=== PATIENT | male | born 2000 | race African-American/Black ===

== ENCOUNTER 2025-08-10 14:02 | Emergency (ER) | payer OTHER ==
[~2025-08-10] VITALS: Ht 172.7 cm; Wt 81.4 kg
[2025-08-10] MEDS: MINERAL OIL 473 ML BTL AU ONE (19:27)
[2025-08-10] MEDS ORDERED: CIPR7.5D2 OTIC (20:07)
[2025-08-10] MEDS: CIPRODEX OTIC SUSP 7.5 ML AU SCH (20:24)
[2025-08-10 20:34] VITALS: BP 130/72; TEMP 97.1; O2SAT 100
== END 2025-08-10 20:36 | disposition home or self-care (01) ==
LOC: M ED 14:02
DX: H61.23 Impacted cerumen, bilateral (principal); S00.411A Abrasion of right ear, initial encounter; Y92.9 Unspecified place or not applicable; Y93.9 Activity, unspecified; Y99.9 Unspecified external cause status; Z79.2 Long term (current) use of antibiotics